=== PATIENT | male | born 1975 | race Caucasian/White ===

== ENCOUNTER 2020-11-12 10:05 | Emergency (ER) | payer OTHER ==
[2020-11-12 10:10] VITALS: BP 170/99; PULSE 83; TEMP 98.5; BMI 34.1
== END 2020-11-12 11:40 | disposition home or self-care (01) ==
LOC: JER 10:05
DX: M79.10 Myalgia, unspecified site (principal); T50.Z95A Adverse effect of other vaccines and biological substances, initial encounter; Z11.52 Encounter for screening for COVID-19
CPT/HCPCS: 99283-25; C9803; U0003; U0005